=== PATIENT | female | born 1980 | race Caucasian/White ===

== ENCOUNTER 2017-12-29 03:32 | Inpatient (IN) | payer BC ==
[~2017-12-29] VITALS: Ht 162.6 cm; Wt 101.0 kg
[2017-12-29] VITALS (10 sets, daily range): BP systolic 107–131; BP diastolic 55–73
[~2017-12-29 03:32] MED LIST: ENDOCET 5-3251 EACH PO; IBUPROFEN800 MG PO; PRENATAL TABLE1 EACH PO; TYLENOL EXTRA500 MG PO
[2017-12-29] MEDS ORDERED: IBUPROFEN800 MG PO (05:12)
[2017-12-30 05:51] LABS: BASOPHIL (%) 0.4 % (0-1); EOSINOPHIL COUNT 0.1 K/uL (0-0.3); HEMATOCRIT 33.2 % (36.0-46.0); HEMOGLOBIN 10.7 G/DL (11.9-15.5); IMMATURE GRANULOCYTE (%) 0.4 % (0.0-0.7); LYMPHOCYTE (%) 24.3 % (15-42); LYMPHOCYTE COUNT 1.8 K/uL (1.0-2.8); MCH 29.7 PG (29.0-34.0); MCHC 32.2 G/DL (30.0-36.0); MCV 92.2 FL (83-99); MONOCYTE (%) 8.5 % (3-12); MONOCYTE COUNT 0.6 K/uL (0-0.8); NEUTROPHIL (%) 65.4 % (45-76); NEUTROPHIL COUNT 4.7 K/uL (1.8-6.4); PLATELET COUNT 119 K/uL (156-360); RBC DIS.WIDTH-CV 15.6 % (11.8-14.6); RBC DIS.WIDTH-SD 52.8 % (39-53); WHITE BLOOD COUNT 7.2 K/uL (4.1-10.2)
[2018-01-01] MEDS ORDERED: AMOXICILLIN500 M1 PO (04:44)
== END 2017-12-31 11:45 | disposition home or self-care (01) | DRG 775 ==
LOC: LDRP-OP 03:32 → 2WEST 03:33 → LDRP-OP 07:31 → 2WEST 12-31 11:45 → LDRP-OP 01-20 08:59
PROVIDERS: Nurse Practitioner
DX: O70.0 First degree perineal laceration during delivery (principal); O48.0 Post-term pregnancy; Z3A.41 41 weeks gestation of pregnancy; E66.9 Obesity, unspecified; O99.214 Obesity complicating childbirth; Z37.0 Single live birth; Z68.33 Body mass index [BMI] 33.0-33.9, adult; O69.81X0 Labor and delivery complicated by cord around neck, without compression, not applicable or unspecified
CPT/HCPCS: 85025; J2590

== ENCOUNTER 2018-01-01 02:23 | Emergency (ER) | payer BC ==
[~2018-01-01] VITALS: Ht 162.6 cm; Wt 100.5 kg
[2018-01-01] MEDS ORDERED: AMOXICILLIN500 M1 PO (04:44)
[2018-01-01 05:10] VITALS: BP 123/63
== END 2018-01-01 05:32 | disposition home or self-care (01) ==
LOC: EME 02:23
DX: O91.23 Nonpurulent mastitis associated with lactation (principal)
CPT/HCPCS: 99281; 99283